=== PATIENT | male | born 1995 | race African-American/Black ===

== ENCOUNTER 2023-12-02 17:33 | Emergency (ER) | payer SELFPAY ==
[2023-12-02 17:56] VITALS: BP 121/78; PULSE 74; RESP 18; TEMP 98.2; BMI 20.6
[2023-12-02] MEDS ORDERED: LACTATED RINGERS SOLUTION 1000 ML INFUS.BAG IV ONE (18:55)
[2023-12-02 20:14] LABS: BASO % 0.8 % (0-2.0); EOS % 0.5 % (0-4.5); HEMATOCRIT 38.3 % (35.4-49); HEMOGLOBIN 12.6 GM/dL (11.7-16.9); LYMPH % 36.6 % (8-40); MCH 27.7 pg (25.7-33.7); MCHC 32.9 g/dl (32.0-35.9); MEAN CELL VOLUME 84.1 fl (80-96); MEAN PLT VOLUME 8.8 fl (7.5-11.1); MONO % 7.7 % (3.8-10.2); NEUT % 54.4 % (42.8-82.8); PLATELET COUNT 239 10^3/uL (134-434); RBC 4.56 M/mm3 (4.00-5.60); RDW 14.2 % (11.9-15.9); WHITE BLOOD COUNT 5.6 K/mm3 (4.0-10.0)
[2023-12-02 20:50] LABS: POTASSIUM 3.9 mmol/L (3.5-5.1)
[2023-12-02 20:52] LABS: CALCIUM 9.5 mg/dL (8.5-10.1)
[2023-12-02 20:53] LABS: ALBUMIN 4.5 g/dl (3.4-5.0); BLOOD UREA NITROGEN 9.3 mg/dL (7-18)
[2023-12-02 20:54] LABS: MAGNESIUM 2.2 mg/dL (1.8-2.4)
[2023-12-02 20:57] LABS: BILIRUBIN,TOTAL 0.7 mg/dL (0.2-1)
[2023-12-02 20:58] LABS: TOT PROT 7.8 g/dl (6.4-8.2)
== END 2023-12-03 04:35 | disposition home or self-care (01) ==
LOC: JER 17:33
DX: R20.0 Anesthesia of skin (principal); F10.129 Alcohol abuse with intoxication, unspecified
CPT/HCPCS: 36415; 80053; 82140; 83036; 83690; 83735; 85025; 99283-25

== ENCOUNTER 2023-12-06 10:29 | Inpatient (IN) | payer OTHER ==
[2023-12-06 11:18] VITALS: BMI 20.4
[2023-12-06] MEDS ORDERED: ONDANSETRON *ODT* 4 MG TABLET SL PRN (11:41)
[2023-12-06] MEDS ORDERED: hydrOXYzine PAMOATE 25 MG CAPSULE (FP) PO PRN (11:41)
[2023-12-06] MEDS ORDERED: DICYCLOMINE HCL 10 MG CAPSULE PO PRN (11:41)
[2023-12-06] MEDS ORDERED: MAG HYDROX/AL HYDROX/SIMETH 30 ML UNIT-DOSE CUP PO PRN (11:41)
[2023-12-06] MEDS ORDERED: BENZONATATE 200 MG CAPSULE PO PRN (11:41)
[2023-12-06] MEDS ORDERED: MAGNESIUM HYDROX 2400MG/30ML ORAL SUSPENSION 30 ML CUP PO PRN (11:41)
[2023-12-06] MEDS ORDERED: NALOXONE HCL (KLOXXADO) 8 MG SPRAY NS PRN (11:41)
[2023-12-06] MEDS ORDERED: NICOTINE POLACRILEX 4 MG GUM BUC PRN (11:41)
[2023-12-06] MEDS ORDERED: LOPERAMIDE HCL 2 MG CAPSULE PO PRN (11:41)
[2023-12-06] MEDS ORDERED: IBUPROFEN 600 MG TABLET (FP) PO PRN (11:41)
[2023-12-06] MEDS ORDERED: guaiFENesin 600 MG TABLET.ER (FP) PO PRN (11:41)
[2023-12-06] MEDS ORDERED: IBUPROFEN 400 MG TABLET (FP) PO PRN (11:41)
[2023-12-06] MEDS ORDERED: BENZOCAINE/MENTHOL (CHLORASEPTIC ) LOZENGE MM PRN (11:41)
[2023-12-06] MEDS ORDERED: ACETAMINOPHEN 325 MG TABLET (FP) PO PRN (11:41)
[2023-12-06] MEDS ORDERED: NALOXONE HCL 0.4 MG/ML VIAL IM PRN (11:41)
[2023-12-06] MEDS ORDERED: METHOCARBAMOL 500 MG TABLET PO PRN (11:41)
[2023-12-06] MEDS ORDERED: BISMUTH SUBSALICYLATE 262 MG/15 ML BTL PO PRN (11:41)
[2023-12-06] MEDS ORDERED: POLYETHYLENE GLYCOL (HEALTHYLAX) 3350 17 GM PACKET PO PRN (11:41)
[2023-12-06] MEDS ORDERED: chlordiazePOXIDE HCL 25 MG CAPSULE PO PRN (13:50)
[2023-12-06 16:57] VITALS: TEMP 97.7
[2023-12-06] MEDS: chlordiazePOXIDE HCL 25 MG CAPSULE PO SCH (17:30)
[2023-12-06] MEDS: THIAMINE HCL 100 MG TABLET (FP) PO SCH (22:39)
[2023-12-06] MEDS: MELATONIN 5 MG TABLETS PO SCH (22:46)
[2023-12-06] MEDS: BACITRACIN/POLYMYXIN B SULFATE 15 GM TUBE TP SCH (23:23)
[2023-12-07 06:01] VITALS: PULSE 85
[2023-12-07 09:07] VITALS: BP 129/89; RESP 20
[2023-12-07] MEDS: PRENATAL VITAMINS W/ FOLIC ACID TABLET (FP) PO SCH (10:55)
[2023-12-07] MEDS: NICOTINE 21 MG/24 HOURS TOPICAL PATCH TD SCH (10:57)
[2023-12-07 11:53] LABS: HEMATOCRIT 41.6 % (35.4-49); HEMOGLOBIN 14.1 GM/dL (11.7-16.9); MCH 28.4 pg (25.7-33.7); MCHC 33.8 g/dl (32.0-35.9); MEAN CELL VOLUME 83.9 fl (80-96); MEAN PLT VOLUME 8.7 fl (7.5-11.1); PLATELET COUNT 260 10^3/uL (134-434); RBC 4.96 M/mm3 (4.00-5.60); RDW 13.6 % (11.9-15.9); WHITE BLOOD COUNT 3.7 K/mm3 (4.0-10.0)
[2023-12-07 12:34] LABS: POTASSIUM 4.4 mmol/L (3.5-5.1)
[2023-12-07 12:37] LABS: CALCIUM 9.7 mg/dL (8.5-10.1)
[2023-12-07 12:38] LABS: ALBUMIN 4.6 g/dl (3.4-5.0); BLOOD UREA NITROGEN 7.5 mg/dL (7-18)
[2023-12-07 12:42] LABS: BILIRUBIN,TOTAL 0.9 mg/dL (0.2-1); TOT PROT 8.3 g/dl (6.4-8.2)
[2023-12-08] MEDS ORDERED: chlordiazePOXIDE HCL 25 MG CAPSULE PO SCH (05:00)
[2023-12-09] MEDS ORDERED: chlordiazePOXIDE HCL 10 MG CAPSULE PO PRN
[2023-12-09] MEDS ORDERED: chlordiazePOXIDE HCL 10 MG CAPSULE PO SCH (05:00)
[2023-12-10] MEDS ORDERED: chlordiazePOXIDE HCL 10 MG CAPSULE PO SCH (05:00)
[2023-12-11] MEDS ORDERED: chlordiazePOXIDE HCL 10 MG CAPSULE PO ONE (05:00)
== END 2023-12-07 11:26 | disposition left against medical advice (07) | DRG 770 ==
LOC: YASAS 10:29 → Y6N 12:05 → UNDOADMIN 12:05 → UNDODISIN 12-07 11:26
PROVIDERS: ADMIT Allergy & Immunology; ATTEND Allergy & Immunology
PROC: HZ2ZZZZ Detoxification Services for Substance Abuse Treatment (ICD-10-PCS; principal; 2023-12-06)
DX: F10.230 Alcohol dependence with withdrawal, uncomplicated (principal); F12.20 Cannabis dependence, uncomplicated; F17.213 Nicotine dependence, cigarettes, with withdrawal; Z87.19 Personal history of other diseases of the digestive system; Z56.0 Unemployment, unspecified; Z59.00 Homelessness unspecified; Z88.0 Allergy status to penicillin
CPT/HCPCS: 36415; 80053; 80307; 82150; 83690; 85027; 86780; 87635; 87811; 93005; 93010

== ENCOUNTER 2024-01-19 13:22 | Inpatient (IN) | payer OTHER ==
[2024-01-19 14:12] VITALS: BMI 23.6
[2024-01-19] MEDS ORDERED: NALOXONE HCL 0.4 MG/ML VIAL IM PRN (16:30)
[2024-01-19] MEDS ORDERED: METHOCARBAMOL 500 MG TABLET PO PRN (16:30)
[2024-01-19] MEDS ORDERED: BENZOCAINE/MENTHOL (CHLORASEPTIC ) LOZENGE MM PRN (16:30)
[2024-01-19] MEDS ORDERED: ACETAMINOPHEN 325 MG TABLET (FP) PO PRN (16:30)
[2024-01-19] MEDS ORDERED: MAGNESIUM HYDROX 2400MG/30ML ORAL SUSPENSION 30 ML CUP PO PRN (16:30)
[2024-01-19] MEDS ORDERED: BENZONATATE 200 MG CAPSULE PO PRN (16:30)
[2024-01-19] MEDS ORDERED: IBUPROFEN 400 MG TABLET (FP) PO PRN (16:30)
[2024-01-19] MEDS ORDERED: guaiFENesin 600 MG TABLET.ER (FP) PO PRN (16:30)
[2024-01-19] MEDS ORDERED: NALOXONE HCL (KLOXXADO) 8 MG SPRAY NS PRN (16:30)
[2024-01-19] MEDS ORDERED: BISMUTH SUBSALICYLATE 524 MG/30 ML PO PRN (16:30)
[2024-01-19] MEDS ORDERED: IBUPROFEN 600 MG TABLET (FP) PO PRN (16:30)
[2024-01-19] MEDS ORDERED: DICYCLOMINE HCL 10 MG CAPSULE PO PRN (16:30)
[2024-01-19] MEDS ORDERED: MAG HYDROX/AL HYDROX/SIMETH 30 ML UNIT-DOSE CUP PO PRN (16:30)
[2024-01-19] MEDS ORDERED: ONDANSETRON *ODT* 4 MG TABLET SL PRN (16:30)
[2024-01-19] MEDS ORDERED: POLYETHYLENE GLYCOL (HEALTHYLAX) 3350 17 GM PACKET PO PRN (16:30)
[2024-01-19] MEDS: hydrOXYzine PAMOATE 25 MG CAPSULE (FP) PO PRN (22:55)
[2024-01-19] MEDS: MELATONIN 5 MG TABLETS PO SCH (22:55)
[2024-01-19] MEDS: THIAMINE HCL 100 MG TABLET (FP) PO SCH (22:55)
[2024-01-20] MEDS: chlordiazePOXIDE HCL 25 MG CAPSULE PO SCH (10:06)
[2024-01-20] MEDS: PRENATAL VITAMINS W/ FOLIC ACID TABLET (FP) PO SCH (10:06)
[2024-01-20 11:59] LABS: HEMATOCRIT 40.9 % (35.4-49); HEMOGLOBIN 13.3 GM/dL (11.7-16.9); MCH 28.3 pg (25.7-33.7); MCHC 32.5 g/dl (32.0-35.9); MEAN PLT VOLUME 8.6 fl (7.5-11.1); PLATELET COUNT 268 10^3/uL (134-434); RDW 15.8 % (11.9-15.9); WHITE BLOOD COUNT 3.2 K/mm3 (4.0-10.0)
[2024-01-20 14:36] LABS: CHLORIDE 102 mmol/L (98-107); POTASSIUM 4.3 mmol/L (3.5-5.1); SODIUM 139 mmol/L (136-145)
[2024-01-20 14:39] LABS: ALBUMIN 3.9 g/dl (3.4-5.0); ANION GAP 9 mmol/L (4-13); BLOOD UREA NITROGEN 9.7 mg/dL (7-18); CALCIUM 9.7 mg/dL (8.5-10.1); CO2 29 mmol/L (21-32); GLUCOSE,RANDOM 107 mg/dL (74-106)
[2024-01-20 14:42] LABS: CREATININE 1.1 mg/dL (0.55-1.3); SGPT/ALT 44 U/L (13-61)
[2024-01-20 14:43] LABS: SGOT/AST 37 U/L (15-37)
[2024-01-20 14:44] LABS: BILIRUBIN,TOTAL 0.4 mg/dL (0.2-1); TOT PROT 7.4 g/dl (6.4-8.2)
[2024-01-20 14:45] LABS: ALK PHOS 70 U/L (45-117)
[2024-01-20] MEDS: LOPERAMIDE HCL 2 MG CAPSULE PO PRN (22:41)
[2024-01-21] MEDS: chlordiazePOXIDE HCL 25 MG CAPSULE PO PRN (12:13)
[2024-01-22] MEDS: chlordiazePOXIDE HCL 25 MG CAPSULE PO SCH (05:31)
[2024-01-22 06:15] VITALS: TEMP 97.8
[2024-01-22 09:42] VITALS: BP 118/70; PULSE 90; RESP 20
[2024-01-23] MEDS ORDERED: chlordiazePOXIDE HCL 10 MG CAPSULE PO PRN
[2024-01-23] MEDS ORDERED: chlordiazePOXIDE HCL 10 MG CAPSULE PO SCH (05:00)
[2024-01-24] MEDS ORDERED: chlordiazePOXIDE HCL 10 MG CAPSULE PO SCH (05:00)
[2024-01-25] MEDS ORDERED: chlordiazePOXIDE HCL 10 MG CAPSULE PO ONE (05:00)
== END 2024-01-22 09:46 | disposition left against medical advice (07) | DRG 770 ==
LOC: YASAS 13:22 → Y3N 17:05
PROVIDERS: ADMIT Allergy & Immunology; ATTEND Surgery
PROC: HZ2ZZZZ Detoxification Services for Substance Abuse Treatment (ICD-10-PCS; principal; 2024-01-19)
DX: F10.230 Alcohol dependence with withdrawal, uncomplicated (principal); F12.20 Cannabis dependence, uncomplicated; F17.213 Nicotine dependence, cigarettes, with withdrawal; F19.251 Other psychoactive substance dependence with psychoactive substance-induced psychotic disorder with hallucinations; F19.24 Other psychoactive substance dependence with psychoactive substance-induced mood disorder; F41.9 Anxiety disorder, unspecified; F32.A Depression, unspecified; F51.5 Nightmare disorder; Z87.19 Personal history of other diseases of the digestive system; Z86.19 Personal history of other infectious and parasitic diseases; Z88.0 Allergy status to penicillin
CPT/HCPCS: 36415; 80053; 80305; 80307; 85027; 86780; 93005; 93010

== ENCOUNTER 2025-04-06 11:58 | Inpatient (IN) | payer OTHER ==
[2025-04-06] MEDS ORDERED: NALOXONE HCL 0.4 MG/ML VIAL IVPUSH PRN (14:59)
[2025-04-06] MEDS ORDERED: METHOCARBAMOL 500 MG TABLET PO PRN (14:59)
[2025-04-06] MEDS ORDERED: BENZONATATE 200 MG CAPSULE PO PRN (14:59)
[2025-04-06] MEDS ORDERED: guaiFENesin 600 MG TABLET.ER (FP) PO PRN (14:59)
[2025-04-06] MEDS ORDERED: BENZOCAINE/MENTHOL (CHLORASEPTIC ) LOZENGE MM PRN (14:59)
[2025-04-06] MEDS ORDERED: LOPERAMIDE HCL 2 MG CAPSULE PO PRN (14:59)
[2025-04-06] MEDS ORDERED: POLYETHYLENE GLYCOL (HEALTHYLAX) 3350 17 GM PACKET PO PRN (14:59)
[2025-04-06] MEDS ORDERED: NALOXONE (NARCAN) HCL 4 MG/0.1 ML SPRAY NS PRN (14:59)
[2025-04-06] MEDS: NALTREXONE HCL 50 MG TABLET PO ONE (18:35)
[2025-04-06] MEDS: OLANZapine 7.5 MG TABLET PO SCH (19:56)
[2025-04-06] MEDS: ACETAMINOPHEN 325 MG TABLET (FP) PO PRN (21:28)
[2025-04-06] MEDS: BACLOFEN 10 MG TABLET (FP) PO SCH (21:28)
[2025-04-06] MEDS: MELATONIN 5 MG TABLETS PO SCH (21:28)
[2025-04-06] MEDS: PANTOPRAZOLE 20 MG TABLET PO SCH (21:28)
[2025-04-06] MEDS: MAG HYDROX/AL HYDROX/SIMETH 30 ML UNIT-DOSE CUP PO PRN (21:28)
[2025-04-06] MEDS: THIAMINE 100 MG TABLET PO SCH (21:28)
[2025-04-06] MEDS ORDERED: MELATONIN 5 MG TABLETS PO SCH (22:00)
[2025-04-07] MEDS: MAGNESIUM HYDROX 2400MG/30ML ORAL SUSPENSION 30 ML CUP PO PRN (09:55)
[2025-04-07] MEDS: PRENATAL VITAMINS W/ FOLIC ACID TABLET (FP) PO SCH (09:57)
[2025-04-07] MEDS ORDERED: FLUoxetine HCL 10 MG TABLET PO SCH (10:00)
[2025-04-07] MEDS ORDERED: PANTOPRAZOLE 40 MG TABLET PO SCH (10:00)
[2025-04-07] MEDS ORDERED: FAMOTIDINE 10 MG TABLET PO SCH (10:00)
[2025-04-07] MEDS: NALTREXONE HCL 50 MG TABLET PO SCH (10:03)
[2025-04-07] MEDS: FLUoxetine HCL 10 MG CAPSULE PO SCH (12:40)
[2025-04-07] MEDS: FLUoxetine HCL 10 MG TABLET PO SCH (13:20)
[2025-04-08] MEDS: IBUPROFEN 600 MG TABLET (FP) PO PRN (18:51)
[2025-04-12] MEDS: NALTREXONE HCL 50 MG TABLET PO SCH (09:52)
[2025-04-13] MEDS: IBUPROFEN 400 MG TABLET (FP) PO PRN (10:30)
[2025-04-25] MEDS: hydrOXYzine PAMOATE 25 MG CAPSULE (FP) PO PRN (19:57)
[2025-04-26] MEDS: NALTREXONE HCL 50 MG TABLET PO ONE (15:00)
[2025-04-27] MEDS: NALTREXONE HCL 50 MG TABLET PO SCH (10:02)
[2025-04-30 06:28] VITALS: BP 105/66; PULSE 81; RESP 16; TEMP 97.8
== END 2025-04-30 09:40 | disposition home or self-care (01) | DRG 772 ==
LOC: YASAS 11:58 → Y3NR 12:00 → Y3E 14:17
PROVIDERS: ADMIT Psychiatry & Neurology Pain Medicine; ATTEND Psychiatry & Neurology Pain Medicine
PROC: HZ42ZZZ Group Counseling for Substance Abuse Treatment, Cognitive-Behavioral (ICD-10-PCS; principal; 2025-04-06)
DX: F10.20 Alcohol dependence, uncomplicated (principal); F12.20 Cannabis dependence, uncomplicated; F17.210 Nicotine dependence, cigarettes, uncomplicated; F19.282 Other psychoactive substance dependence with psychoactive substance-induced sleep disorder; F19.24 Other psychoactive substance dependence with psychoactive substance-induced mood disorder; F25.9 Schizoaffective disorder, unspecified; F41.9 Anxiety disorder, unspecified; F32.A Depression, unspecified; I10 Essential (primary) hypertension; K21.9 Gastro-esophageal reflux disease without esophagitis; K59.00 Constipation, unspecified; R10.84 Generalized abdominal pain; R19.7 Diarrhea, unspecified; Z87.19 Personal history of other diseases of the digestive system; Z88.0 Allergy status to penicillin
CPT/HCPCS: J0475